=== PATIENT | male | born 1980 | race Two or more races ===

== ENCOUNTER 2018-03-31 10:34 | Inpatient (IN) | payer OTHER ==
[~2018-03-31] VITALS: Ht 185.4 cm; Wt 114.5 kg
[2018-03-31] MEDS ORDERED: IBUPROFEN 800 MG TAB PO ONE (15:45)
[2018-03-31] MEDS ORDERED: ACETAMINOPHEN 325 MG TAB PO ONE (15:45)
[2018-03-31] MEDS ORDERED: cefTRIAXone SOD 1,000 MG VL IM ONE (15:45)
[2018-03-31] MEDS ORDERED: SODIUM CHLORIDE 0.9% 2,000 ML IV ONE (16:50)
[2018-03-31] MEDS ORDERED: CLINDAMYCIN 600MG IV 50 ML IV ONE ×2 (17:15)
[2018-03-31 17:21] LABS: Basophils # (auto) 0.1 uL; Basophils % (auto) 0.5 % (0.0-2.0); Eosinophils # (auto) 0 uL; Eosinophils % (auto) 0.1 % (0.0-7.0); Hematocrit 39.5 % (41.0-53.0); Hemoglobin 13.5 g/dL (13.5-17.5); Lymphocytes # (auto) 2.2 uL; Lymphocytes % (auto) 11.2 % (10.0-50.0); Mean Corpuscular Hemoglobin 30.5 pg (28.0-32.0); Mean Corpuscular Hgb Conc. 34.1 g/dL (32.0-36.0); Mean Corpuscular Volume 89.4 fL (80.0-100.0); Monocytes # (auto) 1.4 uL; Neutrophils % (auto) 81.2 % (37.0-80.0); Nucleated Red Blood Cells % 0.1 %; Platelet Count (auto) 226 10^3/uL (140-450); Red Blood Cells 4.42 10^6/uL (4.5-5.90); Red Cell Distribution Width 12.6 % (11.8-14.3); White Blood Cell 19.7 10^3/uL (4.4-10.8)
[2018-03-31 17:35] LABS: Albumin 3.5 g/dL (3.4-5.0); BUN/Creatinine Ratio 12.9; Calcium 8.3 mg/dL (8.5-10.1); Potassium 3.7 mmol/L (3.5-5.1)
[2018-03-31 17:37] LABS: Bilirubin, Total 0.7 mg/dL (0.2-1.0); Total Protein 6.9 g/dL (6.4-8.2)
[2018-03-31 17:53] LABS: INR 0.98 (0.9-1.15); Partial Thromboplastin Time 27.9 sec (23.78-33.04); Prothrombin Time 10.5 sec (9.27-12.13)
[2018-03-31] MEDS ORDERED: VANCOMYCIN 1GM/250ML 250 ML IV ONE (18:45)
[2018-03-31] MEDS ORDERED: ONDANSETRON HCL 4 MG/2 ML VIAL IV PRN (20:30)
[2018-03-31] MEDS ORDERED: TEMAZEPAM 15 MG CAP PO PRN (20:30)
[2018-03-31] MEDS ORDERED: SODIUM CHLORIDE 0.9% 1,000 ML IV ONE (20:45)
[2018-03-31] MEDS: SODIUM CHLORIDE 0.9% 1,000 ML IV SCH (21:06)
[2018-03-31] MEDS: CLINDAMYCIN 600MG IV 50 ML IV SCH (22:19)
[2018-03-31] MEDS: FAMOTIDINE 20 MG TAB PO SCH (22:19)
[2018-04-01] VITALS (7 sets, daily range): BP systolic 115–134; BP diastolic 48–80
[2018-04-01] MEDS: HYDROcodone-ACET 5/325MG TAB PO PRN ×3 (02:38→18:52)
[2018-04-01] MEDS ORDERED: IBUPROFEN 600 MG TAB PO ONE (04:00)
[2018-04-01] MEDS: CLINDAMYCIN 600MG IV 50 ML IV SCH ×3 (06:00→22:14)
[2018-04-01 06:26] LABS: Basophils # (auto) 0.1 uL; Basophils % (auto) 0.6 % (0.0-2.0); Eosinophils # (auto) 0.1 uL; Eosinophils % (auto) 0.3 % (0.0-7.0); Hematocrit 40.4 % (41.0-53.0); Hemoglobin 13.7 g/dL (13.5-17.5); Lymphocytes # (auto) 1.8 uL; Lymphocytes % (auto) 11.1 % (10.0-50.0); Mean Corpuscular Hemoglobin 30.7 pg (28.0-32.0); Mean Corpuscular Hgb Conc. 33.9 g/dL (32.0-36.0); Mean Corpuscular Volume 90.5 fL (80.0-100.0); Monocytes # (auto) 1.5 uL; Monocytes % (auto) 8.9 % (0.0-12.0); Neutrophils % (auto) 79.1 % (37.0-80.0); Nucleated Red Blood Cells % 0.1 %; Platelet Count (auto) 232 10^3/uL (140-450); Red Blood Cells 4.47 10^6/uL (4.5-5.90); Red Cell Distribution Width 12.8 % (11.8-14.3); White Blood Cell 16.5 10^3/uL (4.4-10.8)
[2018-04-01 06:42] LABS: Albumin 3.3 g/dL (3.4-5.0); BUN/Creatinine Ratio 12.7; Calcium 8.3 mg/dL (8.5-10.1); Potassium 3.9 mmol/L (3.5-5.1)
[2018-04-01 06:44] LABS: Bilirubin, Total 0.9 mg/dL (0.2-1.0); Total Protein 6.6 g/dL (6.4-8.2)
[2018-04-01] MEDS: cefTRIAXone 1GM/10ml IVPUSH 10 ML IV SCH (09:26)
[2018-04-01] MEDS: FAMOTIDINE 20 MG TAB PO SCH ×2 (09:27→22:14)
[2018-04-01 15:42] LABS: Alcohol, Urine < 3.0 mg/dL (0-5); Amphetamine Screen, Urine NEGATIVE (NEGATIVE); Barbiturate Scree,Urine NEGATIVE (NEGATIVE); Benzodiazephine Screen, Urine NEGATIVE (NEGATIVE); Cannabinoid Screen, Urine NEGATIVE (NEGATIVE); Cocaine Screen, Urine NEGATIVE (NEGATIVE); Opiate Scree,Urine NEGATIVE (NEGATIVE); Phencyclidine Screen, Urine NEGATIVE (NEGATIVE)
[2018-04-01] MEDS: ACETAMINOPHEN 325 MG TAB PO PRN (17:24)
[2018-04-01] MEDS: SODIUM CHLORIDE 0.9% 1,000 ML IV SCH ×2 (22:10→22:16)
[2018-04-02] MEDS: ACETAMINOPHEN 325 MG TAB PO PRN (02:58)
[2018-04-02] MEDS: CLINDAMYCIN 600MG IV 50 ML IV SCH ×3 (05:37→21:53)
[2018-04-02 05:43] VITALS: BP 130/82
[2018-04-02 07:04] LABS: Basophils # (auto) 0.1 uL; Basophils % (auto) 0.4 % (0.0-2.0); Eosinophils # (auto) 0.1 uL; Eosinophils % (auto) 0.8 % (0.0-7.0); Hematocrit 39.5 % (41.0-53.0); Hemoglobin 13.4 g/dL (13.5-17.5); Lymphocytes # (auto) 1.8 uL; Lymphocytes % (auto) 12.1 % (10.0-50.0); Mean Corpuscular Hemoglobin 30.8 pg (28.0-32.0); Mean Corpuscular Volume 90.7 fL (80.0-100.0); Monocytes # (auto) 1.3 uL; Monocytes % (auto) 8.9 % (0.0-12.0); Neutrophils # (auto) 11.5 uL; Neutrophils % (auto) 77.8 % (37.0-80.0); Platelet Count (auto) 267 10^3/uL (140-450); Red Blood Cells 4.35 10^6/uL (4.5-5.90); Red Cell Distribution Width 12.7 % (11.8-14.3); White Blood Cell 14.7 10^3/uL (4.4-10.8)
[2018-04-02] MEDS ORDERED: ceFAZolin 1GM/50ML 50 ML IV ONE (08:17)
[2018-04-02 08:53] VITALS: BP 150/76
[2018-04-02] MEDS ORDERED: MIDAZOLAM HCL 1MG/1ML-2 ML VIAL ONE (08:56)
[2018-04-02] MEDS ORDERED: fentaNYL CITRATE 100 MCG/2 ML VL ONE (08:56)
[2018-04-02] MEDS ORDERED: PROPOFOL 10 MG/ML 20 ML IV ONE (09:00)
[2018-04-02] MEDS: FAMOTIDINE 20 MG TAB PO SCH ×2 (10:00→21:53)
[2018-04-02] MEDS ORDERED: ePHEDrine SULFATE 50 MG/ML AMP IV PRN (10:15)
[2018-04-02] MEDS ORDERED: ONDANSETRON HCL 4 MG/2 ML VIAL IV ONE (10:15)
[2018-04-02] MEDS ORDERED: HYDROmorphone HCL 2 MG/ML VL IV PRN (10:15)
[2018-04-02] MEDS ORDERED: hydrALAZINE HCL 20 MG/ML VL IV PRN (10:15)
[2018-04-02] MEDS: SODIUM CHLORIDE 0.9% 1,000 ML IV SCH (11:41)
[2018-04-02] MEDS: cefTRIAXone 1GM/10ml IVPUSH 10 ML IV SCH (11:41)
[2018-04-02 13:00] VITALS: BP 117/72
[2018-04-02 13:45] LABS: Urine Bacteria NONE SEEN /hpf (None Seen); Urine Blood Negative /uL (Negative); Urine Specific Gravity 1.018 (1.001-1.035); Urine WBC 1 /hpf (0 - 3)
[2018-04-02 17:00] VITALS: BP 127/74
[2018-04-02 22:00] VITALS: BP 123/75
[2018-04-03] MEDS: SODIUM CHLORIDE 0.9% 1,000 ML IV SCH (02:06)
[2018-04-03 05:00] VITALS: BP 127/81
[2018-04-03] MEDS: CLINDAMYCIN 600MG IV 50 ML IV SCH (05:42)
[2018-04-03 06:42] LABS: Basophils # (auto) 0 uL; Basophils % (auto) 0.3 % (0.0-2.0); Eosinophils # (auto) 0 uL; Eosinophils % (auto) 0.1 % (0.0-7.0); Hematocrit 36.8 % (41.0-53.0); Hemoglobin 12.7 g/dL (13.5-17.5); Lymphocytes # (auto) 2.2 uL; Lymphocytes % (auto) 15.2 % (10.0-50.0); Mean Corpuscular Hemoglobin 30.6 pg (28.0-32.0); Mean Corpuscular Hgb Conc. 34.4 g/dL (32.0-36.0); Mean Corpuscular Volume 89.2 fL (80.0-100.0); Monocytes # (auto) 1.1 uL; Monocytes % (auto) 7.4 % (0.0-12.0); Neutrophils # (auto) 11.2 uL; Platelet Count (auto) 332 10^3/uL (140-450); Red Blood Cells 4.13 10^6/uL (4.5-5.90); Red Cell Distribution Width 12.8 % (11.8-14.3); White Blood Cell 14.6 10^3/uL (4.4-10.8)
[2018-04-03 08:30] VITALS: BP 139/91
[2018-04-03] MEDS: cefTRIAXone 1GM/10ml IVPUSH 10 ML IV SCH (09:26)
[2018-04-03] MEDS: FAMOTIDINE 20 MG TAB PO SCH (09:26)
[2018-04-03] MEDS: HYDROcodone-ACET 5/325MG TAB PO PRN (10:05)
[2018-04-03 13:06] VITALS: BP 136/83
== END 2018-04-03 13:10 | disposition home or self-care (01) | DRG 854 ==
LOC: ER 10:34 → OVERFLOW 10:35 → EAST 04-01 00:50
PROVIDERS: ADMIT Nurse Practitioner; ATTEND Family Medicine
PROC: 0W9F0ZZ Drainage of Abdominal Wall, Open Approach (ICD-10-PCS; principal; 2018-04-03)
DX: A41.9 Sepsis, unspecified organism (principal); L03.314 Cellulitis of groin; L02.214 Cutaneous abscess of groin; K40.90 Unilateral inguinal hernia, without obstruction or gangrene, not specified as recurrent
CPT/HCPCS: 36415; 71046; 74176; 76705; 80053; 80307; 81001; 83605; 85025; 85610; 85730; 87040; 87070; 87075; 87076; 87205; 96365; 96367; 96372; J0690; J0696; J2250; J2405; J2704; J3490